=== PATIENT | female | born 1990 | race African-American/Black ===

== ENCOUNTER 2018-05-13 13:22 | Emergency (ER) | payer SELFPAY ==
[~2018-05-13] VITALS: Ht 162.6 cm; Wt 107.7 kg
[~2018-05-13 13:22] MED LIST: NO HOME MEDS
[2018-05-13 13:27] VITALS: BP 126/61
[2018-05-13] MEDS ORDERED: ALBU8HFA IH (13:47)
== END 2018-05-13 16:38 | disposition home or self-care (01) ==
LOC: EMS 13:22
DX: Z32.02 Encounter for pregnancy test, result negative (principal); R11.0 Nausea; R42 Dizziness and giddiness; J45.909 Unspecified asthma, uncomplicated; Z79.899 Other long term (current) drug therapy
CPT/HCPCS: 99284